=== PATIENT | male | born 1960 | race Caucasian/White ===

== ENCOUNTER → 2017-01-03 | Outpatient (CLI) | payer OTHER ==
--- NOTE | 2017-01-04 03:35 | HKNOTE ---
DATE OF SERVICE: 01/03/2017 CHIEF COMPLAINT: Bilateral knee pain. HISTORY OF PRESENT ILLNESS: This is a 56-year-old male who injured his left knee in July 2016. Patient twisted his left knee. He is complaining of pain in the left knee. The pain interferes with his activities of daily living. He has occasional locking and catching of the knee. He has difficulty navigating stairs. The pain is sharp. There are no alleviating factors. He takes occasional pain medications. He has no other complaints. PHYSICAL EXAMINATION: GAIT: He has a nonantalgic gait. No use of assistive devices. LEFT KNEE: He is tender to palpation over the medial and lateral joint lines. Neutral alignment. 0-130 degrees range of motion. Positive Anastasia's. Negative Siena's. Negative anterior drawer. Negative posterior drawer. 5/5 quadriceps, hamstrings, tibialis anterior, gastroc soleus, and palpable pulses. RIGHT KNEE: Neutral alignment. Tender over the medial joint line. Nontender over the lateral joint line. 0-130 degrees range of motion. Positive Anastasia's. Negative Siena's. Negative anterior drawer. Negative posterior drawer. 5/5 quadriceps, tibialis anterior, gastroc soleus, and palpable pulses. IMAGING: MRI right knee. There is a tear of the posterior horn of the medial meniscus. MRI left knee. There is a tear of the posterior horn of the medial meniscus. There is also a tear of the anterior horn of the lateral meniscus with a flipped meniscal fragment. IMPRESSION: A 56-year-old male with a tear of medial and lateral meniscus of left knee. PLAN: We will request authorization for physical therapy of the left knee. He will return in 8 weeks for followup. Dictated By: Johnathan Garrido MD /sherice/aamir /Document#: [id number]
== END | disposition home or self-care (01) ==
LOC: HKI 13:27
PROVIDERS: ATTEND Orthopaedic Surgery Adult Reconstructive Orthopaedic Surgery
DX: M25.561 Pain in right knee (principal); M25.562 Pain in left knee; S83.241A Other tear of medial meniscus, current injury, right knee, initial encounter; S83.242A Other tear of medial meniscus, current injury, left knee, initial encounter; S83.282A Other tear of lateral meniscus, current injury, left knee, initial encounter
CPT/HCPCS: G0463

== ENCOUNTER → 2017-05-02 | Outpatient (CLI) | END | disposition home or self-care (01) ==